=== PATIENT | male | born 1995 | race Caucasian/White ===

== ENCOUNTER 2021-04-20 07:06 | Emergency (ER) | payer OTHER ==
[2021-04-20 07:19] VITALS: BP 116/75; PULSE 61; TEMP 98; BMI 50.1
== END 2021-04-20 08:11 | disposition home or self-care (01) ==
LOC: JER 07:06
DX: L29.9 Pruritus, unspecified (principal)
CPT/HCPCS: 99283-25; C9803; U0003; U0005